=== PATIENT | female | born 1975 | race Two or more races ===

== ENCOUNTER 2024-08-27 14:18 | Emergency (ER) | payer MEDICAID, SELFPAY ==
[2024-08-27 15:17] VITALS: BP 117/77; PULSE 83; RESP 17; TEMP 36.8; O2SAT 98; BMI 27.9
--- NOTE | 2024-08-27 15:38 | EDNOTE_ITS ---
Upper Extremity Injury RME/HPI General Chief Complaint: Hand/Wrist Problems Stated Complaint: LEFT WRIST PAIN Source: patient Arrival date/time: 08/27/24 14:18 49-year-old female presents emergency department complaining of left wrist pain after ground-level accidental fall that occurred today. Patient denies LOC or injury to head or neck area. Mode of arrival: ambulatory Limitations: no limitations Related Data Home Medications ?Medication ?Instructions ?Recorded ?Confirmed ergocalciferol (vitamin D2) 1,250 50,000 unit PO QWEEK 08/04/22 08/04/22 mcg (50,000 unit) capsule fluconazole 100 mg tablet 100 mg PO DAILY 08/04/22 08/04/22 Previous Rx's ?Medication ?Instructions ?Recorded ferrous sulfate 325 mg (65 mg 325 mg PO BID #60 tabs 05/16/22 iron) tablet,delayed release pantoprazole 40 mg tablet,delayed 40 mg PO BID #60 tabs 05/16/22 release (Protonix) cyclobenzaprine 10 mg tablet 10 mg PO BID #14 tabs 06/06/23 ibuprofen 400 mg tablet 400 mg PO Q8H #20 tabs 06/06/23 famotidine 20 mg tablet 20 mg PO BID #60 tabs 10/25/23 ibuprofen 600 mg tablet 600 mg PO Q8H PRN pain #20 tabs 08/27/24 Allergies Allergy/AdvReac Type Severity Reaction Status Date / Time dextromethorphan Allergy Severe Dizziness Verified 07/17/24 14:28 [From NyQuil] doxylamine [From NyQuil] Allergy Severe Dizziness Verified 07/17/24 14:28 pseudoephedrine [From NyQuil] Allergy Severe Dizziness Verified 07/17/24 14:28 Review of Systems Review of Systems Systems Reviewed: All systems reviewed, normal except as documented Constitutional Constitutional: Reports system reviewed and no additional complaints, except as documented, Denies body ache(s), Denies chills and Denies fever(s) Eyes Eyes: Reports system reviewed and no additional complaints, except as documented and Denies change in vision ENT Ears, Nose, Mouth, and Throat: Reports system reviewed and no additional complaints, except as documented, Denies disequilibrium, Denies dizziness, Denies sore throat and Denies vertigo Cardiovascular Cardiovascular: Reports system reviewed and no additional complaints, except as documented, Denies chest pain and Denies dyspnea Respiratory Respiratory: Reports system reviewed and no additional complaints, except as documented, Denies chest congestion, Denies cough and Denies dyspnea Gastrointestinal Gastrointestinal: Reports system reviewed and no additional complaints, except as documented, Denies abdominal pain, Denies nausea and Denies vomiting Musculoskeletal Musculoskeletal: Reports system reviewed and no additional complaints, except as documented, Denies abnormal gait and Reports arthralgias Integumentary/Breasts Skin/Breast: Reports system reviewed and no additional complaints, except as documented, Denies erythema, Denies rash and Denies wounds Neurologic Neurologic: Reports system reviewed and no additional complaints, except as documented, Denies abnormal gait, Denies disequilibrium, Denies dizziness and Denies vertigo Past Medical History Past Medical History NEUROLOGIC: Negative Neurological Disorders or Seizures CARDIAC: Negative Cardiac Disorders or Congestive Heart Failure RESPIRATORY: Negative Chronic Obstructive Pulmonary Disease (COPD), Asthma or Sleep Apnea GASTROINTESTINAL: Positive Gastrointestinal Disorders, Hiatal Hernia and Gastroesophageal Reflux Disease GENITOURINARY: Negative Genitourinary Disorders or Renal Disease MUSCULOSKELETAL: Negative Musculoskeletal Disorders ENDOCRINE: Negative Diabetes Mellitus Type 1 or Diabetes Mellitus Type 2 HEMATOLOGIC: Negative Sickle Cell Disease OTHER HISTORY: Positive Blood Transfusions; Negative Blood Transfusion Reaction or Anesthesia Reactions Surgical History SURGICAL: Positive Abdominal Surgery Social History SMOKING STATUS: Never smoker ED Exam General Limitations: Present no limitations General appearance: Present alert and in no apparent distress Head Head exam: Present atraumatic Eye Eye exam: Present normal appearance, PERRL and EOMI ENT ENT exam: Present normal exam, normal oropharynx and mucous membranes moist Neck Neck exam: Present normal inspection, full ROM and trachea midline Chest Chest inspection: Present normal inspection and symmetric chest wall rise Respiratory Respiratory exam: Present normal lung sounds bilaterally Cardiovascular Cardiovascular exam: Present regular rate, normal rhythm and normal heart sounds Abdominal Exam Abdominal exam: Present soft and normal bowel sounds Extremities Exam Extremities exam: Present normal inspection and full ROM Expanded Upper Extremity Exam Forearm/Wrist exam: Present full ROM and tenderness (left wrist) Back Exam Back exam: Present normal inspection and full ROM Neurological Exam Neurological exam: Present alert, oriented X3 and CN II-XII intact Psychiatric Psychiatric exam: Present normal affect and normal mood Skin Skin exam: Present warm, dry, intact and normal color Course Quality Measures none Orders Category Date Time Status XR wrist comp LT min 3V Stat Exams 08/27/24 15:38 Completed Ketorolac Inj [Toradol Inj] Med 08/27/24 15:38 Discontinued 30 mg IM X1 ONE Vital Signs Vital signs: Vital Signs Temperature 98.3 F 08/27/24 15:17 Pulse Rate 83 08/27/24 15:17 Respiratory Rate 17 08/27/24 15:17 Blood Pressure 117/77 08/27/24 15:17 Pulse Oximetry (%) 98 08/27/24 15:17 Oxygen Delivery Method Room Air 08/27/24 15:17 98% RA WNL. Extremity Injury MDM Narrative MDM Narrative:: 49-year-old female presents emergency department complaining of left wrist pain after ground-level accidental fall that occurred today. Patient denies LOC or i njury to head or neck area. XR negative for acute fracture. Patient left wrist and hand neurovascularly intact with full Active ROM. Patient has prefabricated Velcro wrist splint advised to wear for comfort and follow up with primary care provider and have repeat XR wrist. Instructed return to ER for any worsening symptoms. Patient data External records reviewed:: [facility] previous records Clinical information provided by:: patient and family Social determinants that could affect healthcare access:: none (n/a) Patient has the following chronic illnesses:: see chart How is presenting disease/condition affected by chronic disease/condition?: uneffected by Evaluation data The following diagnostics were reviewed and interpreted by me:: radiology exam(s) Lab and/or radiology exams considered but not ordered:: ordered Interpretation Summary: interpreted by me Medications / Prescriptions Medications or Prescriptions considered but not ordered:: ordered Medication administrations:: Medication Administration History Discontinued Medications Ketorolac Tromethamine (Ketorolac Inj 60 Mg/2 Ml Vial) 30 mg IM X1 ONE Stop: 08/27/24 15:39 Last Admin: 08/27/24 15:52 Dose: 30 mg Documented By: EE given Consultations Consultation(s) initiated? (list below): No Diagnosis Upper Extremity Injury Differential Diagnosis: sprain and strain of wrist and fracture of wrist Most likely diagnosis given after review of the tests above:: wrist sprain Admission Indicated Admission indicated?: not indicated Admission Request Was there a request for admission?: No Disposition Plan Disposition Plan: Discharge Discharge Attestation Discharge Attestation: The patient and all family members were given an opportunity to ask questions and understood the discharge instructions. Discharge instructions specifically effects, indications for sooner follow up or return to the emergency department, and the expected course of current diagnosis. Patient condition: Stable Discharge Plan Plan Patient Disposition: HOME (Self Care) Disposition Comment: Stable Prescriptions/Referrals Prescriptions/Med Rec: New ibuprofen 600 mg tablet 600 mg PO Q8H PRN (Reason: pain) Qty: 20 0RF No Action ferrous sulfate 325 mg (65 mg iron) Tablet,Delayed Release (Dr/Ec) 325 mg PO BID Qty: 60 3RF pantoprazole [Protonix] 40 mg tablet,delayed release (DR/EC) 40 mg PO BID Qty: 60 3RF famotidine 20 mg tablet 20 mg PO BID Qty: 60 0RF fluconazole 100 mg tablet 100 mg PO DAILY Patient Comments: TAKE 1 TABLET BY MOUTH EVERY DAY ergocalciferol (vitamin D2) 1,250 mcg (50,000 unit) capsule 50,000 unit PO QWEEK Patient Comments: TAKE 1 CAPSULE BY MOUTH ONE TIME PER WEEK ibuprofen 400 mg tablet 400 mg PO Q8H Qty: 20 0RF cyclobenzaprine 10 mg tablet 10 mg PO BID Qty: 14 0RF Referrals: No Primary/Family,Physician [Primary Care Provider] - In 1 week Problem List Clinical Impression: Sprain of wrist Patient/Caregiver Discharge Instructions Discharge Activity: activity as tolerated Education Materials: ED Wrist Sprain Additional Instructions: Take medication as prescribed. Follow-up with primary care provider and request repeat x-ray of wrist. Return to emergency department for any worsening symptoms or as needed. Print Language: Slovenian Stand Alone Forms: [employer] Award Info., Patient Portal Info Letter PA/CLINICAL INFORMATICS DIRECTOR Supervising Physician PA/BETSEY Supervising Physician: Dr. Horton
--- NOTE | 2024-08-27 15:38 | XR_ITS ---
Examination: Wrist, left 3 views Technique: Wrist AP, oblique, lateral 3 views Date and time of exam: August 27, 2024 1456 hrs. Indications: Patient fell today with injury to the wrist, wrist pain Findings: No acute fracture, probable trabecular lines over the radial metaphyseal region No dislocation No foreign body Impression: No definite acute fracture, recommend short-term follow-up as clinically warranted
[2024-08-27] MEDS: KETOROLAC INJ 60 MG/2 ML VIAL 30 MG IM (15:52)
== END 2024-08-27 16:35 | disposition home or self-care (01) ==
PROVIDERS: Emergency Provider Emergency Medicine
DX: S63.502A Unspecified sprain of left wrist, initial encounter (principal); W18.30XA Fall on same level, unspecified, initial encounter
CPT/HCPCS: 73110; 96372; 99283; J1885

== ENCOUNTER 2024-12-27 20:18 | Emergency (ER) | payer MEDICAID, SELFPAY ==
[2024-12-27 20:53] VITALS: BP 124/77; PULSE 91; RESP 18; TEMP 36.9; O2SAT 97
[2024-12-27 22:04] LABS: Basophils % (Auto) 1 % (0-2.5); Eosinophils # (Auto) 0.1 Thou/mm3 (0.0-0.5); Eosinophils % (Auto) 1 % (0-10); Hematocrit 41.5 % (36.0-46.0); Hemoglobin 13.5 g/dL (12.0-16.0); Immature Granulocytes % (Auto) 0 % (0-0); Immature Granulocytes Auto 0.01 Thou/mm3 (0.00-0.00); Lymphocytes % (Auto) 39 % (10-50); Mean Corpuscular HGB Conc 32.5 g/dl (31.0-37.0); Mean Corpuscular Hemoglobin 27.4 pg (25.0-35.0); Mean Corpuscular Volume 84 fL (80-100); Monocytes # (Auto) 0.5 Thou/mm3 (0.0-0.8); Monocytes % (Auto) 9 % (0-12); Neutrophils # (Auto) 2.5 Thou/mm3 (1.8-7.7); Neutrophils % (Auto) 50 % (37-80); Nucleated Red Blood Cell % 0 /100 WBC (0); Platelet Count 402 Thou/mm3 (140-440); Red Blood Count 4.92 Miln/mm3 (4.00-5.20); White Blood Count 5.1 Thou/mm3 (3.6-11.0)
[2024-12-27 22:28] LABS: Collection Type, Urine Clean Catch
[2024-12-27 22:30] LABS: Alanine Aminotransferase 22 U/L (10-49); Albumin, Serum 4.6 gm/dL (3.5-5.0); Albumin/Globulin Ratio 1.3 (1.2-2.2); Alkaline Phosphatase 116 U/L (46-116); Anion Gap 8 (7-16); Aspartate Amino Transferase 21 U/L (0-34); BUN/Creatinine Ratio 22 Ratio (12-20); Bilirubin,Total 0.6 mg/dL (0.3-1.2); Blood Urea Nitrogen 13 mg/dL (9-23); Calcium 10.2 mg/dL (8.3-10.6); Calcium (Corrected) 10.2 mg/dL (8.5-10.1); Carbon Dioxide 24.9 mMol/L (20.0-31.0); Chloride 107 mMol/L (98-107); Creatinine (Component) 0.6 mg/dL (0.6-1.3); Globulin 3.5 gm/dL (2.3-3.5); Glucose 99 mg/dL (74-106); Osmolality,Calculated 279 (275-295); Potassium 4.4 mMol/L (3.4-5.1); Sodium 140 mMol/L (136-145); Total Protein 8.1 gm/dL (5.7-8.2); eGFR > 60 See Note
[2024-12-27] MEDS: NAPROXEN 250 MG TABLET 500 MG PO (22:32)
[2024-12-27 22:34] LABS: Bilirubin,Urine Negative (Negative); Blood,Urine 1+ (Negative); Clarity,Urine Clear (Clear/Hazy); Color,Urine Lt-Yellow (Lt Yel-Yel); Culture Indicated,Urine Not Indicated; Glucose, Urine Negative (Negative); Ketones,Urine Negative (Negative); Leukocyte Esterase,Urine Positive (Negative); Nitrite,Urine Negative (Negative); PH,Urine 6.5 (5.0-7.0); Protein,Urine Negative (Neg - Trace); RBC,Urine 2 /hpf (0-3); Specific Gravity,Urine 1.009 (1.001-1.035); Squamous Epithelial Cell,Urine 2 /hpf (0-5); Urobilinogen,Urine Negative mg/dL (0.0-1.0); WBC,Urine 2 /hpf (0-5)
[2024-12-27 22:37] LABS: HCG Qualitative,Urine Negative
--- NOTE | 2024-12-27 22:44 | XR_ITS ---
Examination: CT abdomen and pelvis without contrast. Coronal 3-D reconstructions. Sagittal 2-D reconstructions. Date and time of exam:December 27, 2024, 11:35 PM Indications: Lower back pain abdominal pain with urination 3 days CTDI: vol (mGy): 12.1 DLP: (mGycm): 625 Technique: Axial images of the abdomen have been obtained, 3 mm slice thickness Intravenous contrast material has not been administered. Low dose protocols were performed. One or more of the following dose reduction techniques were used; automated exposure control, adjustment of the mA and/or KV according to patient size, use of iterative reconstruction technique. Findings: No focal liver or splenic lesion Gallbladder contracted No pancreatic mass. No renal calculi Aorta normal size No bowel obstruction. No pericecal inflammatory change. Anteverted uterus Wall thickening urinary bladder to 12 mm Grade 1 spondylolisthesis L5 on S1 with advanced degenerative disc disease L5-S1 Impression: Urinary bladder wall thickening up to 12 mm, differential would include cystitis
[2024-12-28] MEDS: ONDANSETRON ODT 4 MG TABRAP PO (00:24)
[2024-12-28] MEDS: HYDROcodone/APAP 5/325 TABLET 1 TAB PO (00:24)
[2024-12-28 00:28] VITALS: RESP 18
--- NOTE | 2024-12-28 02:24 | PD.EDFMALE ---
ED Female Urogenital RME/HPI General Chief complaint: Back Pain/Injury Stated complaint: LEFT LOWER BACK PAIN, PAIN WITH URINATION Time Seen by Provider: 12/27/24 21:36 Arrival date/time: 12/27/24 20:18 49F with no significant PMH presents to ED with 2 days of L lower back pain and dysuria. Limitations: no limitations Related Data Home Medications ?Medication ?Instructions ?Recorded ?Confirmed ergocalciferol (vitamin D2) 1,250 50,000 unit PO QWEEK 08/04/22 08/04/22 mcg (50,000 unit) capsule fluconazole 100 mg tablet 100 mg PO DAILY 08/04/22 08/04/22 Previous Rx's ?Medication ?Instructions ?Recorded ferrous sulfate 325 mg (65 mg 325 mg PO BID #60 tabs 05/16/22 iron) tablet,delayed release pantoprazole 40 mg tablet,delayed 40 mg PO BID #60 tabs 05/16/22 release (Protonix) cyclobenzaprine 10 mg tablet 10 mg PO BID #14 tabs 06/06/23 ibuprofen 400 mg tablet 400 mg PO Q8H #20 tabs 06/06/23 famotidine 20 mg tablet 20 mg PO BID #60 tabs 10/25/23 ibuprofen 600 mg tablet 600 mg PO Q8H PRN pain #20 tabs 08/27/24 cefuroxime axetil 500 mg tablet 500 mg PO BID 7 days #14 tabs 12/28/24 Allergies Allergy/AdvReac Type Severity Reaction Status Date / Time dextromethorphan (From Allergy Severe Dizziness Verified 07/17/24 14:28 NyQuil) doxylamine (From NyQuil) Allergy Severe Dizziness Verified 07/17/24 14:28 pseudoephedrine (From NyQuil) Allergy Severe Dizziness Verified 07/17/24 14:28 Review of Systems Review of Systems Systems Reviewed: All systems reviewed, normal except as documented Constitutional Constitutional: Reports system reviewed and no additional complaints, except as documented, Denies fever(s) and Denies headache(s) ENT Ears, Nose, Mouth, and Throat: Denies disequilibrium and Denies headache(s) Cardiovascular Cardiovascular: Reports system reviewed and no additional complaints, except as documented, Denies chest pain and Denies dyspnea Respiratory Respiratory: Reports system reviewed and no additional complaints, except as documented, Denies cough and Denies dyspnea Gastrointestinal Gastrointestinal: Reports system reviewed and no additional complaints, except as documented, Denies abdominal pain, Denies nausea and Denies vomiting Genitourinary Genitourinary: Reports as per HPI, Reports dysuria and Reports flank pain Neurologic Neurologic: Reports system reviewed and no additional complaints, except as documented, Denies confusion, Denies disequilibrium and Denies headache(s) Psychiatric Psychiatric: Denies confusion Past Medical History Past Medical History NEUROLOGIC: Negative Neurological Disorders or Seizures CARDIAC: Negative Cardiac Disorders or Congestive Heart Failure RESPIRATORY: Negative Chronic Obstructive Pulmonary Disease (COPD), Asthma or Sleep Apnea GASTROINTESTINAL: Positive Gastrointestinal Disorders, Hiatal Hernia and Gastroesophageal Reflux Disease GENITOURINARY: Negative Genitourinary Disorders or Renal Disease MUSCULOSKELETAL: Negative Musculoskeletal Disorders ENDOCRINE: Negative Diabetes Mellitus Type 1 or Diabetes Mellitus Type 2 HEMATOLOGIC: Negative Sickle Cell Disease OTHER HISTORY: Positive Blood Transfusions; Negative Blood Transfusion Reaction or Anesthesia Reactions Surgical History SURGICAL: Positive Abdominal Surgery Social History SMOKING STATUS: Former smoker ED Exam General Limitations: Present no limitations General appearance: Present alert and in no apparent distress Head Head exam: Present atraumatic Eye Eye exam: Present normal appearance, PERRL and EOMI ENT ENT exam: Present normal exam, normal oropharynx and mucous membranes moist Neck Neck exam: Present normal inspection, full ROM and trachea midline Chest Chest inspection: Present normal inspection and symmetric chest wall rise Respiratory Respiratory exam: Present normal lung sounds bilaterally Cardiovascular Cardiovascular exam: Present regular rate, normal rhythm and normal heart sounds Abdominal Exam Abdominal exam: Present soft and normal bowel sounds Extremities Exam Extremities exam: Present normal inspection and full ROM Back Exam Back exam: Present normal inspection and full ROM Neurological Exam Neurological exam: Present alert, oriented X3 and CN II-XII intact Psychiatric Psychiatric exam: Present normal affect and normal mood Skin Skin exam: Present warm, dry, intact and normal color Course Quality Measures none Orders Category Date Time Status CT abdomen pelvis wo con Stat Exams 12/27/24 22:44 Completed CBC Stat Lab 12/27/24 21:45 Completed CMP [Comprehensive Metabolic Panel] Stat Lab 12/27/24 21:45 Completed HCG Qualitative,Urine Stat Lab 12/27/24 22:01 Completed Urinalysis, C/S if Indicated Stat Lab 12/27/24 22:01 Completed HYDROcodone*/APAP 5/325 [Nenana 5/325] Med 12/27/24 23:56 Discontinued 1 tab PO X1 ONE Naproxen [Naprosyn] Med 12/27/24 21:47 Discontinued 500 mg PO X1 ONE Ondansetron Odt [Zofran Odt] Med 12/28/24 00:00 Discontinued 4 mg PO X1 ONE Vital Signs Vital signs: Vital Signs Temperature 98.4 F 12/27/24 20:53 Pulse Rate 91 12/27/24 20:53 Respiratory Rate 18 12/27/24 20:53 Blood Pressure 124/77 12/27/24 20:53 Pulse Oximetry (%) 97 12/27/24 20:53 Oxygen Delivery Method Room Air 12/27/24 20:53 O2 at 97% on RA and WNLs Urogenital - Female MDM Narrative MDM Narrative:: 49F with no significant PMH presents to ED with 2 days of L lower back pain and dysuria. Physical exam reveals no flank tenderness. Patient is afebrile, calm, and alert. No leukocytosis. CMP unremarkable. UA no gross UTI. CT reveals thickened urinary bladder wall. Given that finding, complaint, will treat as UTI. Patient data External records reviewed:: [facility] previous records Clinical information provided by:: patient Social determinants that could affect healthcare access:: none Patient has the following chronic illnesses:: none How is presenting disease/condition affected by chronic disease/condition?: no chronic disease Evaluation data The following diagnostics were reviewed and interpreted by me:: lab results and radiology exam(s) Lab and/or radiology exams considered but not ordered:: ordered Interpretation Summary: above Medications / Prescriptions Medications or Prescriptions considered but not ordered:: ordered Medication administrations:: Medication Administration History Discontinued Medications Hydrocodone Bitart/Acetaminophen (Hydrocodone/Apap 5/325 Tablet) 1 tab PO X1 ONE Stop: 12/27/24 23:57 Last Admin: 12/28/24 00:24 Dose: 1 tab Documented By: DENISE Naproxen (Naproxen 250 Mg Tablet) 500 mg PO X1 ONE Stop: 12/27/24 21:48 Last Admin: 12/27/24 22:32 Dose: 500 mg Documented By: ASIM Ondansetron HCl (Ondansetron Odt 4 Mg Tabrap) 4 mg PO X1 ONE; Protocol Stop: 12/28/24 00:01 Last Admin: 12/28/24 00:24 Dose: 4 mg Documented By: DENISE above Consultations Consultation(s) initiated? (list below): No Diagnosis Urogenital Female Differential Diagnosis: urinary tract infection, bacterial vaginosis, trichomoniasis, cervicitis, ovarian cyst, vaginitis, ruptured ovarian cyst, cyst of Bartholin's gland, cystitis, dysmenorrhea and other (kidney stone) Most likely diagnosis given after review of the tests above:: UTI Admission Indicated Admission indicated?: not indicated Admission Request Was there a request for admission?: No Disposition Plan Disposition Plan: Discharge Discharge Attestation Discharge Attestation: The patient and all family members were given an opportunity to ask questions and understood the discharge instructions. Discharge instructions specifically effects, indications for sooner follow up or return to the emergency department, and the expected course of current diagnosis. Patient condition: Stable Discharge Plan Plan Patient Disposition: HOME (Self Care) Disposition Comment: Stable Prescriptions/Referrals Prescriptions/Med Rec: New cefuroxime axetil 500 mg tablet 500 mg PO BID 7 Days Qty: 14 0RF No Action ferrous sulfate 325 mg (65 mg iron) Tablet,Delayed Release (Dr/Ec) 325 mg PO BID Qty: 60 3RF pantoprazole [Protonix] 40 mg tablet,delayed release (DR/EC) 40 mg PO BID Qty: 60 3RF famotidine 20 mg tablet 20 mg PO BID Qty: 60 0RF fluconazole 100 mg tablet 100 mg PO DAILY Patient Comments: TAKE 1 TABLET BY MOUTH EVERY DAY ergocalciferol (vitamin D2) 1,250 mcg (50,000 unit) capsule 50,000 unit PO QWEEK Patient Comments: TAKE 1 CAPSULE BY MOUTH ONE TIME PER WEEK ibuprofen 400 mg tablet 400 mg PO Q8H Qty: 20 0RF cyclobenzaprine 10 mg tablet 10 mg PO BID Qty: 14 0RF ibuprofen 600 mg tablet 600 mg PO Q8H PRN (Reason: pain) Qty: 20 0RF Referrals: Javon Irvin MD [Primary Care Provider] - In 1 week Problem List Clinical Impression: UTI (urinary tract infection) Patient/Caregiver Discharge Instructions Additional Instructions: Please follow-up with PCP within 24-48 hours and return immediately if symptoms worsen. Print Language: Albanian Stand Alone Forms: Patient Portal Info Letter JAVIER/BETSEY Supervising Physician JAVIER/BETSEY Supervising Physician: Dr. Unger
== END 2024-12-28 00:29 | disposition home or self-care (01) ==
PROVIDERS: Physician Assistant; Emergency Provider Emergency Medicine; PCP Family Medicine
DX: N39.0 Urinary tract infection, site not specified (principal); M54.50 Low back pain, unspecified; R10.9 Unspecified abdominal pain
CPT/HCPCS: 36415; 74176; 80053; 81001; 81025; 85025; 99284; Q0162; A9270

== ENCOUNTER → 2025-03-26 | Outpatient (CLI) | payer MEDICAID, SELFPAY ==
--- NOTE | 2025-03-26 10:30 | XR_ITS ---
Examination: Breast ultrasound, unilateral, left complete Date and time of exam: March 26, 2025 10:34 AM INDICATIONS: Outside mammogram 9 mm focal asymmetry lateral left breast, mammogram performed 2 months ago Technique: Real-time schmidt scale ultrasonographic imaging performed left breast including all 4 quadrants as well as nipple retroareolar and axillary region. Findings: 1:00 cyst 8 x 8 mm 2:00 nodule circumscribed 7 x 7 mm 2:00 nodule circumscribed 7 x 7 mm Retroareolar nodule circumscribed 6 x 6 mm IMPRESSION: BI-RADS Category 3: Probably benign findings One additional 6 month left breast sonogram follow-up is needed to document stability of multiple nodules described above
== END | disposition home or self-care (01) ==
LOC: CDIM 10:14
PROVIDERS: PCP Family Medicine; Referring Provider Family Medicine; Visit Provider Family Medicine
DX: N63.42 Unspecified lump in left breast, subareolar (principal); N63.21 Unspecified lump in the left breast, upper outer quadrant
CPT/HCPCS: 76641

== ENCOUNTER 2025-04-09 15:04 | Emergency (ER) | payer MEDICAID, SELFPAY ==
[2025-04-09 15:52] VITALS: BP 124/80; PULSE 98; RESP 18; TEMP 36.8; O2SAT 99
--- NOTE | 2025-04-09 16:00 | XR_ITS ---
Examination: CT abdomen and pelvis without contrast. Coronal 3-D reconstructions. Sagittal 2-D reconstructions. Date and time of exam:April 09, 2025, 1802 hours Comparison December 27, 2024 INDICATIONS: Generalized abdominal pain and flank pain beginning 5 days ago CTDI: vol (mGy): 9.48 DLP: (mGycm): 535 Technique: Axial images of the abdomen have been obtained, 3 mm slice thickness Intravenous contrast material has not been administered. Low dose protocols were performed. One or more of the following dose reduction techniques were used; automated exposure control, adjustment of the mA and/or KV according to patient size, use of iterative reconstruction technique. Findings: No focal liver or splenic lesions Contracted gallbladder No pancreatic or adrenal mass No renal or ureteral calculi Normal appendix Upper abdominal 25 mm fat-containing hernia The appendix is not visualized There is significant inflammatory change centered in the pelvis axial image 155 which is very difficult to assess without intravenous contrast Anteverted uterus Mild thickening of the urinary bladder wall IMPRESSION: Abnormal significant inflammatory change centered in the peritoneum in the pelvis, recommend repeating this study with intravenous contrast
--- NOTE | 2025-04-09 16:00 | PD.EDRME ---
Rapid Medical Screening Exam RME Arrival date/time: 04/09/25 15:04 50-year-old female present Emergency Department today for complaints of flank pain abdominal pain and back pain patient was recently started on antibiotics for UTI Chief Complaint: General Adult/Misc Complain Vital signs: Vital Signs Temperature 98.2 F 04/09/25 15:52 Pulse Rate 98 04/09/25 15:52 Respiratory Rate 18 04/09/25 15:52 Blood Pressure 124/80 04/09/25 15:52 Pulse Oximetry (%) 99 04/09/25 15:52 Oxygen Delivery Method Room Air 04/09/25 15:52
[2025-04-09 16:26] LABS: Basophils % (Auto) 1 % (0-2.5); Eosinophils % (Auto) 0 % (0-10); Hematocrit 36.9 % (36.0-46.0); Immature Granulocytes % (Auto) 0 % (0-0); Immature Granulocytes Auto 0.01 Thou/mm3 (0.00-0.00); Lymphocytes # (Auto) 1.5 Thou/mm3 (1.0-4.8); Lymphocytes % (Auto) 27 % (10-50); Mean Corpuscular HGB Conc 32.5 g/dl (31.0-37.0); Mean Corpuscular Hemoglobin 26.7 pg (25.0-35.0); Mean Corpuscular Volume 82 fL (80-100); Monocytes # (Auto) 0.7 Thou/mm3 (0.0-0.8); Monocytes % (Auto) 12 % (0-12); Neutrophils # (Auto) 3.4 Thou/mm3 (1.8-7.7); Neutrophils % (Auto) 60 % (37-80); Nucleated Red Blood Cell % 0 /100 WBC (0); Platelet Count 423 Thou/mm3 (140-440); RDW Standard Deviation 39.2 fL (36.4-46.3); White Blood Count 5.7 Thou/mm3 (3.6-11.0)
[2025-04-09 16:39] LABS: Alanine Aminotransferase 15 U/L (10-49); Albumin, Serum 4.5 gm/dL (3.5-5.0); Albumin/Globulin Ratio 1.5 (1.2-2.2); Alkaline Phosphatase 122 U/L (46-116); Anion Gap 8 (7-16); Aspartate Amino Transferase 17 U/L (0-34); BUN/Creatinine Ratio 13 Ratio (12-20); Bilirubin,Total 0.5 mg/dL (0.3-1.2); Blood Urea Nitrogen 8 mg/dL (9-23); Calcium 9.7 mg/dL (8.3-10.6); Calcium (Corrected) 9.7 mg/dL (8.5-10.1); Carbon Dioxide 28.3 mMol/L (20.0-31.0); Chloride 104 mMol/L (98-107); Creatinine (Component) 0.6 mg/dL (0.6-1.3); Globulin 3.1 gm/dL (2.3-3.5); Glucose 105 mg/dL (74-106); Lipase 24 U/L (12-53); Osmolality,Calculated 277 (275-295); Potassium 4.9 mMol/L (3.4-5.1); Sodium 140 mMol/L (136-145); Total Protein 7.6 gm/dL (5.7-8.2); eGFR > 60 See Note
[2025-04-09 16:43] LABS: Collection Type, Urine Clean Catch
[2025-04-09 17:01] LABS: Bilirubin,Urine Negative (Negative); Blood,Urine 2+ (Negative); Clarity,Urine Clear (Clear/Hazy); Color,Urine Lt-Yellow (Lt Yel-Yel); Culture Indicated,Urine Not Indicated; Glucose, Urine Negative (Negative); Ketones,Urine Negative (Negative); Leukocyte Esterase,Urine Positive (Negative); Nitrite,Urine Negative (Negative); PH,Urine 6.5 (5.0-7.0); Protein,Urine Negative (Neg - Trace); RBC,Urine 17 /hpf (0-3); Specific Gravity,Urine 1.017 (1.001-1.035); Squamous Epithelial Cell,Urine 7 /hpf (0-5); Urobilinogen,Urine Negative mg/dL (0.0-1.0); WBC,Urine 3 /hpf (0-5)
[2025-04-09 17:08] LABS: HCG Qualitative,Urine Negative
--- NOTE | 2025-04-09 19:02 | PD.EDABDPN ---
ED Abdominal Pain RME/HPI General Chief Complaint: General Adult/Misc Complain Stated complaint: PAIN IN KIDNEYS, BURNING; ON ATB FOR UTI Time seen by provider: 04/09/25 17:44 Arrival date/time: 04/09/25 15:04 RME / HPI RME / HPI narrative: 04/09/25 15:04 50-year-old female present Emergency Department today for complaints of flank pain abdominal pain and back pain patient was recently started on antibiotics for UTI ------ This section includes all my notes and documentations, including HPI, PE, and ED course. Juan Chua MD HPI: 50yo female presents to the ED for complaints of bilateral flank pain, generalized abdominal pain, and dysuria for the last few days. Patient has been on antibiotics, nitrofurantoin, for the last 2 days, but feels that her dysuria, abdominal pain, and flank pain have progressively gotten worse. She does have nausea. No vomiting, fever, chills or any other associated symptoms. No other complaints reported. ROS: All negative except as documented in HPI. Physical Exam: General: Alert and oriented. No acute distress when remaining still. Eyes: Conjunctivae and lids clear. ENT: No nasal congestion. Neck: Supple. Heart: RRR. Lungs: No respiratory distress. Good air movement. No rhonchi, wheezing, rales. Abdomen: Soft and nontender. Normal bowel sounds. No distension. No rebound or guarding. Back: No CVA tenderness. Skin: Warm and dry. Neuro: Alert and oriented X 3. I reviewed all diagnostic test results. My review of the CT abdomen pelvis report is NAD. Blood tests are unremarkable. UA remarkable for positive leukocyte esterase and 17 RBC and 38 WBC. At this point, diagnoses include UTI. Treatment here included Diflucan, Rocephin, and Pyridium. Recommended outpatient management. Based on my best medical judgment, made decision no further evaluation or treatment indicated at this time. Patient understands and agrees to the discharge instructions customized and printed, see below. Discharge instructions from Dr. Chua: 1. After evaluation, you have urinary tract infection with very early kidney infection. 2. Take cefdinir and Diflucan to kill the germs causing the infection. Increase oral fluid to flush it out. Maintain clear urine. If dark or yellow, increase oral fluid. 3. Toradol for pain. 4. See a private doctor on 04/12/2025 for recheck. Ask to review all test results and official radiology reports, to make sure you receive all necessary follow-ups and monitoring. 5. Seek immediate medical care with worsening, fever, or with any concerns. Juan Chua MD Related Data Home Medications ?Medication ?Instructions ?Recorded ?Confirmed ergocalciferol (vitamin D2) 1,250 50,000 unit PO QWEEK 08/04/22 08/04/22 mcg (50,000 unit) capsule fluconazole 100 mg tablet 100 mg PO DAILY 08/04/22 08/04/22 Previous Rx's ?Medication ?Instructions ?Recorded ferrous sulfate 325 mg (65 mg 325 mg PO BID #60 tabs 05/16/22 iron) tablet,delayed release pantoprazole 40 mg tablet,delayed 40 mg PO BID #60 tabs 05/16/22 release (Protonix) cyclobenzaprine 10 mg tablet 10 mg PO BID #14 tabs 06/06/23 ibuprofen 400 mg tablet 400 mg PO Q8H #20 tabs 06/06/23 famotidine 20 mg tablet 20 mg PO BID #60 tabs 10/25/23 ibuprofen 600 mg tablet 600 mg PO Q8H PRN pain #20 tabs 08/27/24 cefdinir 300 mg capsule 300 mg PO BID 5 days #10 caps 04/09/25 fluconazole 200 mg tablet 200 mg PO QDAY 5 days #5 tabs 04/09/25 (Diflucan) ketorolac 10 mg tablet 10 mg PO Q8H PRN pain 5 days #10 04/09/25 tabs Allergies Allergy/AdvReac Type Severity Reaction Status Date / Time dextromethorphan (From Allergy Severe Dizziness Verified 04/09/25 15:09 NyQuil) doxylamine (From NyQuil) Allergy Severe Dizziness Verified 04/09/25 15:09 pseudoephedrine (From NyQuil) Allergy Severe Dizziness Verified 04/09/25 15:09 Review of Systems Review of Systems Systems Reviewed: All systems reviewed, normal except as documented Past Medical History Past Medical History NEUROLOGIC: Negative Neurological Disorders or Seizures CARDIAC: Negative Cardiac Disorders or Congestive Heart Failure RESPIRATORY: Negative Chronic Obstructive Pulmonary Disease (COPD), Asthma or Sleep Apnea GASTROINTESTINAL: Positive Gastrointestinal Disorders, Hiatal Hernia and Gastroesophageal Reflux Disease GENITOURINARY: Negative Genitourinary Disorders or Renal Disease MUSCULOSKELETAL: Negative Musculoskeletal Disorders ENDOCRINE: Negative Diabetes Mellitus Type 1 or Diabetes Mellitus Type 2 HEMATOLOGIC: Negative Sickle Cell Disease OTHER HISTORY: Positive Blood Transfusions; Negative Blood Transfusion Reaction or Anesthesia Reactions Surgical History SURGICAL: Positive Abdominal Surgery Social History SMOKING STATUS: Never smoker ED Exam Narrative Physical exam: As noted in HPI. Course Quality Measures none Orders Category Date Time Status CT abdomen pelvis wo con Stat Exams 04/09/25 16:00 Completed CBC Stat Lab 04/09/25 16:08 Completed Comprehensive Metabolic Panel Stat Lab 04/09/25 16:08 Completed HCG Qualitative,Urine Stat Lab 04/09/25 16:10 Completed Lipase Stat Lab 04/09/25 16:08 Completed UA, C/S IF [Urinalysis, C/S if Indicated] Stat Lab 04/09/25 16:10 Completed Fluconazole [Diflucan] Med 04/09/25 19:02 Discontinued 200 mg PO X1 ONE Phenazopyridine HCl [Pyridium] Med 04/09/25 19:02 Discontinued 200 mg PO X1 ONE cefTRIAXone [Rocephin] 1,000 mg Med 04/09/25 19:02 Discontinued Lidocaine 1% 20 ml [Xylocaine 1% 20 ML] 2.1 ml IM X1 Vital Signs Vital signs: Vital Signs Temperature 98.2 F 04/09/25 15:52 Pulse Rate 98 04/09/25 15:52 Respiratory Rate 18 04/09/25 15:52 Blood Pressure 124/80 04/09/25 15:52 Pulse Oximetry (%) 99 04/09/25 15:52 Oxygen Delivery Method Room Air 04/09/25 15:52 Abdominal Pain MDM MDM Narrative MDM Narrative:: 50yo female presents to the ED for complaints of bilateral flank pain, generalized abdominal pain, and dysuria for the last few days. Patient has been on antibiotics for the last 2 days, but feels that her dysuria, abdominal pain, and flank pain have progressively gotten worse. She does have nausea. No vomiting, fever, chills or any other associated symptoms. No other complaints reported. Patient data External records reviewed:: [facility] previous records (Per chart review, patient was seen here on 12/28/24 for UTI.) Clinical information provided by:: patient and family Social determinants that could affect healthcare access:: none Patient has the following chronic illnesses:: none How is presenting disease/condition affected by chronic disease/condition?: no chronic disease Evaluation data The following diagnostics were reviewed and interpreted by me:: lab results and radiology exam(s) Lab and/or radiology exams considered but not ordered:: none Interpretation Summary: I reviewed all diagnostic test results. My review of the CT abdomen pelvis report is NAD. Blood tests are unremarkable. UA remarkable for positive leukocyte esterase and 17 RBC and 38 WBC. Medications / Prescriptions Medications or Prescriptions considered but not ordered:: none Medication administrations:: Medication Administration History Discontinued Medications Ceftriaxone Sodium 1,000 mg/ (Lidocaine HCl 2.1 ml) 0 mg IM X1 ONE Stop: 04/09/25 19:03 Fluconazole (Fluconazole 100 Mg Tablet) 200 mg PO X1 ONE Stop: 04/09/25 19:03 Phenazopyridine HCl (Phenazopyridine Hcl 100 Mg Tablet) 200 mg PO X1 ONE Stop: 04/09/25 19:03 Diflucan, Rocephin, Pyridium Consultations Consultation(s) initiated? (list below): No Diagnosis Differential diagnosis abdominal pain: acute appendicitis, calculus of kidney, constipation, diverticulitis, endometriosis, gastroenteritis, pancreatitis, small bowel obstruction and other (Pyelonephritis, UTI, psychogenic, musculoskeletal pain) Most likely diagnosis given after review of the tests above:: UTI Admission Indicated Admission indicated?: not indicated Explain why admission is indicated or not indicated:: With no condition needing emergent intervention, there was no indication for admission. Admission Request Was there a request for admission?: No Disposition Plan Disposition Plan: Discharge Discharge Attestation Discharge Attestation: The patient and all family members were given an opportunity to ask questions and understood the discharge instructions. Discharge instructions specifically effects, indications for sooner follow up or return to the emergency department, and the expected course of current diagnosis. Patient condition: Stable Discharge Plan Plan Patient Disposition: HOME (Self Care) Prescriptions/Referrals Prescriptions/Med Rec: New fluconazole [Diflucan] 200 mg tablet 200 mg PO QDAY 5 Days Qty: 5 0RF ketorolac 10 mg tablet 10 mg PO Q8H PRN (Reason: pain) 5 Days Qty: 10 0RF cefdinir 300 mg capsule 300 mg PO BID 5 Days Qty: 10 0RF No Action ferrous sulfate 325 mg (65 mg iron) Tablet,Delayed Release (Dr/Ec) 325 mg PO BID Qty: 60 3RF pantoprazole [Protonix] 40 mg tablet,delayed release (DR/EC) 40 mg PO BID Qty: 60 3RF famotidine 20 mg tablet 20 mg PO BID Qty: 60 0RF fluconazole 100 mg tablet 100 mg PO DAILY Patient Comments: TAKE 1 TABLET BY MOUTH EVERY DAY ergocalciferol (vitamin D2) 1,250 mcg (50,000 unit) capsule 50,000 unit PO QWEEK Patient Comments: TAKE 1 CAPSULE BY MOUTH ONE TIME PER WEEK ibuprofen 400 mg tablet 400 mg PO Q8H Qty: 20 0RF cyclobenzaprine 10 mg tablet 10 mg PO BID Qty: 14 0RF ibuprofen 600 mg tablet 600 mg PO Q8H PRN (Reason: pain) Qty: 20 0RF Referrals: Javon Irvin MD [Primary Care Provider] - In 1 week Problem List Clinical Impression: UTI (urinary tract infection) Patient/Caregiver Discharge Instructions Discharge Activity: activity as tolerated Education Materials: ED CYSTITIS Female Adult Additional Instructions: Discharge instructions from Dr. Chua: 1. After evaluation, you have urinary tract infection with very early kidney infection. 2. Take cefdinir and Diflucan to kill the germs causing the infection.? Increase oral fluid to flush it out.? Maintain clear urine.? If dark or yellow, increase oral fluid. 3. Toradol for pain. 4. See a private doctor on 04/12/2025 for recheck. Ask to review all test results and official radiology reports, to make sure you receive all necessary follow-ups and monitoring. 5. Seek immediate medical care with worsening, fever, or with any concerns. Print Language: Nepali Stand Alone Forms: [employer] Info., Patient Portal Info Letter
[2025-04-09] MEDS: FLUCONAZOLE 100 MG TABLET 200 MG PO (19:29)
[2025-04-09] MEDS: cefTRIAXone 1,000 MG, LIDOCAINE 1% 20 ML 2.1 ML IM (19:33)
== END 2025-04-09 19:30 | disposition home or self-care (01) ==
PROVIDERS: Nurse Practitioner Primary Care; Emergency Provider Emergency Medicine; PCP Family Medicine
DX: N39.0 Urinary tract infection, site not specified (principal); R10.84 Generalized abdominal pain
CPT/HCPCS: 36415; 74176; 80053; 81001; 81025; 83690; 85025; 96372; 99284; J0696; J3490; A9270

== ENCOUNTER → 2025-05-17 | Outpatient (CLI) | payer MEDICAID, SELFPAY ==
--- NOTE | 2025-05-17 14:45 | XR_ITS ---
Examination: Diagnostic digital mammography, unilateral, left Computer aided detection 3-D breast Tomosynthesis, unilateral Date and time of exam: May 17, 2025 1446 hours INDICATIONS: Outside mammogram December 25, 2024 19 mm asymmetry lateral left breast Technique: Nonmagnified MLO, CC views of the left breast have been obtained, reconstructed from 3-D Tomosynthesis images. R2 computer aided detection program utilized for evaluation of suspicious masses and/or abnormal calcifications. 3-D Tomosynthesis images obtained. Findings: The breast is heterogeneously dense, which may obscure small masses 2:00 nodule 7 mm partially circumscribed margins Impression: BI-RADS category 3: Probably benign findings One additional 6 month left mammogram follow-up is needed to document stability of nodule described above
== END | disposition home or self-care (01) ==
LOC: CDIM 14:32
PROVIDERS: Referring Provider Family Medicine; Visit Provider Family Medicine
DX: R92.332 Mammographic heterogeneous density, left breast (principal); N63.21 Unspecified lump in the left breast, upper outer quadrant
CPT/HCPCS: 77061; 77065; G0279

== ENCOUNTER → 2025-07-17 | Outpatient (CLI) | payer MEDICAID, SELFPAY ==
[2025-07-16 18:04] LABS: HCG Qualitative,Urine Negative
--- NOTE | 2025-07-17 13:39 | XR_ITS ---
Examination: CT pelvis with intravenous contrast, 2-D sagittal reconstructions. 2-D coronal reconstructions. 3-D reconstructions. Date and time of exam:July 17, 2025, 1445 hours, comparison CT abdomen pelvis April 09, 2025 INDICATIONS: Urinary tract infections 2 months, history significant inflammatory change in the peritoneum in the pelvis on CT abdomen pelvis April 09, 2025 CTDI: vol (mGy):27.5 DLP: (mGycm):599 Technique: Multiple 1.25 mm axial sections of the pelvis with intravenous contrast, 60 cc [id number] have been obtained. 2-D sagittal and coronal reconstructions have been obtained. 3-D reconstructions have been obtained. Low dose protocols were performed. One or more of the following dose reduction techniques were used; automated exposure control, adjustment of the mA and/or KV according to patient size, use of iterative reconstruction technique. Findings: No bowel obstruction Appendix is mildly thickened but no definite inflammatory change Anteverted uterus No current inflammatory change in the pelvis No diverticulitis Contracted urinary bladder Advanced degenerative disc disease L5-S1, grade 1 spondylolisthesis L5 on S1 IMPRESSION: Appendix is mildly thickened but no definite inflammatory change, the appearance should be clinically correlated No current inflammatory change in the pelvis noted, no pelvic abscess
== END | disposition home or self-care (01) ==
LOC: CCTX 13:24
PROVIDERS: PCP Physician Assistant; Referring Provider Physician Assistant; Visit Provider Physician Assistant
DX: K38.9 Disease of appendix, unspecified (principal)
CPT/HCPCS: 72193; 81025; A4649; Q9967